=== PATIENT | female | born 1970 | race American Indian/Alaskan Native ===

== ENCOUNTER 2016-06-23 08:28 | Outpatient (CLI) | payer BC ==
--- NOTE | 2016-06-23 16:06 | Ultrasound Report ---
ABDOMINAL ULTRASOUND: 06/23/16 08:28:00 CLINICAL: Right upper quadrant abdominal pain and dyspepsia. FINDINGS: High-resolution ultrasound demonstrated a normal liver with normal size, contour and echogenicity. No liver mass. Normal hepatic vasculature and inferior vena cava. Normal gallbladder and bile ducts. Gall bladder wall measured 2.0 mm in thickness. The common bile duct measured 2.1 mm diameter. The pancreas is diffusely enlarged and echogenic. No pancreatic mass or fluid collection. Normal abdominal aorta. A normal spleen measured 7.5cm. Normal kidneys with normal echogenicity and normal non-dilated renal collecting systems and ureters. The right kidney measured 10.6 x 3.9 x 5.4cm. The left kidney measured 10.6 x 5.4 x 4.9cm. No renal mass or calculus. No ascites or mass. IMPRESSION: Fatty infiltration of the pancreas and otherwise normal abdomen. No cholelithiasis.
== END 2016-06-23 08:29 | disposition home or self-care (01) ==
LOC: SPVWC 08:28
PROVIDERS: ATTEND Internal Medicine
DX: K86.89 Other specified diseases of pancreas (principal)
CPT/HCPCS: 76700